=== PATIENT | male | born 1940 | race Caucasian/White ===

== ENCOUNTER 2021-05-07 17:06 | Emergency (ER) | payer OTHER ==
[~2021-05-07] VITALS: Ht 170.2 cm; Wt 59.0 kg
[2021-05-07 17:29] VITALS: BP_SYST 158
--- NOTE | 2021-05-07 17:39 | NUR ---
Placed in room 6 . Placed on traffic monitor specialist, blood pressure machine and pulse oximeter. To gown for exam. Side rails up.
--- NOTE | 2021-05-07 17:39 | NUR ---
ER at bedside examining patient.
--- NOTE | 2021-05-07 17:40 | NUR ---
Pt brought in by BLS from [facility] with swelling to the left foot with no palpable pedal pulses. Left foot appears swollen and red. Pt able to move all extremities and pain to left foot 1/10. Pt alert and oriented x4, no chest pain or sob.
--- NOTE | 2021-05-07 17:50 | NUR ---
ER at bedside examining patient.
[2021-05-07 18:43] LABS: BASOPHILS % (AUTO) 0.4 % (0.0-2.0); EOSINOPHILS % (AUTO) 0.5 % (0.0-4.0); LYMPHOCYTES # (AUTO) 1.5 K/uL (1.0-5.5); LYMPHOCYTES % (AUTO) 26.6 % (20.5-51.5); MEAN CORPUSCULAR HEMOGLOBIN 32 pg (27-31); MEAN CORPUSCULAR HGB CONC 34 % (32-36); MEAN CORPUSCULAR VOLUME 94 fL (79.0-98.0); MONOCYTES # (AUTO) 0.6 K/uL (0.0-1.0); MONOCYTES % (AUTO) 10.4 % (1.7-9.3); NEUTROPHILS # (AUTO) 3.5 K/uL (1.8-7.7); NEUTROPHILS % (AUTO) 62.1 % (40.0-70.0); PLATELET COUNT (AUTO) 167 K/uL (130-430); RED BLOOD CELL COUNT(AUTO) 4.06 MIL/uL (4.2-6.2); RED CELL DISTRIBUTION WIDTH 13.4 % (9.0-15.0); WHITE BLOOD COUNT (AUTO) 5.6 K/uL (4.8-10.8)
--- NOTE | 2021-05-07 18:45 | NUR ---
Voided 250 ml clear yellow urine in urinal.
--- NOTE | 2021-05-07 18:45 | NUR ---
Placed in room 6 . Placed on primary care sales representative, blood pressure machine and pulse oximeter. To gown for exam. Side rails up.
[2021-05-07 18:47] LABS: ANION GAP 7 (5-15); CALCIUM 9.2 mg/dL (8.4-11.0); CHLORIDE 104 mmol/L (98-107); CREATININE 0.73 mg/dL (0.55-1.30); GLUCOSE 104 mg/dL (70-99); POTASSIUM 3.9 mmol/L (3.5-5.1); SODIUM SERUM 140 mmol/L (136-145); UREA NITROGEN, BLOOD 23 mg/dL (8-21)
[2021-05-07 18:56] LABS: ALANINE AMINOTRANSFERASE 17 U/L (12-78); ALBUMIN 3.5 g/dL (3.4-4.8); ASPARTATE AMINOTRANSFERASE 16 U/L (10-37); TOTAL BILIRUBIN 0.2 mg/dL (0.0-1.0)
--- NOTE | 2021-05-07 19:50 | NUR ---
VSS no s/s of acute distress, resting on gurney rails up
--- NOTE | 2021-05-07 20:55 | NUR ---
Pt utilized bedside urinal to output 580 ml of clear yellow urine, well tolerated
--- NOTE | 2021-05-07 21:50 | NUR ---
Pt verbalized understanding ( in maori ) he is awaiting transport back to [facility]
--- NOTE | 2021-05-07 23:00 | NUR ---
Spoke with Jayla Larkin, they are aware of his return to facility
[2021-05-07 23:35] VITALS: BP_SYST 142
--- NOTE | 2021-05-07 23:35 | NUR ---
Patient given written and verbal discharge instructions and verbalizes understanding. ER MD discussed with patient the results and treatment provided. Patient in stable condition. ID arm band removed. Patient educated on pain management and to follow up with PMD. Pain Scale 0/10 Opportunity for questions provided and answered.
== END 2021-05-07 23:35 | disposition home or self-care (01) ==
LOC: SED 17:06
DX: I87.2 Venous insufficiency (chronic) (peripheral) (principal); R60.0 Localized edema; K21.9 Gastro-esophageal reflux disease without esophagitis; Z20.822 Contact with and (suspected) exposure to COVID-19
CPT/HCPCS: 36415; 80053; 84484; 85025; 93970; 99284